=== PATIENT | male | born 1955 | race Caucasian/White ===

== ENCOUNTER 2020-03-14 08:57 | Outpatient (REF) | payer BC, SELFPAY ==
--- NOTE | 2020-03-14 08:57 | FL_ITS ---
EXAMINATION: FL BARIUM SWALLOW CLINICAL INFORMATION: Dysphagia COMPARISON: 11/20/2018 TECHNIQUE: Barium swallow examination is performed using fluoroscopic evaluation in addition to multiple fluoroscopic spot views. The patient is imaged both upright and prone and using both thick and thin sulfate along with effervescent granules. A 13 mm barium tablet was also utilized. Fluoroscopy time: 2 minutes DAP: 12.285 Gycm2 Images: 86 FINDINGS: There is normal oral bolus control and transfer. Normal posterior tilt of the epiglottis with elevation of the hyoid. No cricopharyngeal abnormality. There is focal filling defect in the anterior upper esophagus at the level of C6-C7. This is well seen on series 2 image 7 and on series 6 image 16. The 13 mm barium tablet promptly passed beyond this level. The esophagus was normal in course, caliber, and contour. There was normal distensibility with no additional fixed segment of narrowing. No additional focal mucosal abnormality was identified. Mild to moderate esophageal dysmotility was observed. Significant stasis of contrast in the esophagus in the prone position. Contrast passed freely across the gastroesophageal junction into the stomach. No significant hiatal hernia. No gastroesophageal reflux was observed. FL/FL barium swallow IMPRESSION: Linear filling defect in the anterior upper esophagus. This is not definitively seen on the previous esophagram from 11/20/2018. This could represent an esophageal web. This did not cause delayed passage of the barium tablet. Mild to moderate esophageal dysmotility.
== END 2020-03-14 08:58 | disposition home or self-care (01) ==
LOC: HO.XRAY 08:57
PROVIDERS: PCP Internal Medicine; Visit Provider Internal Medicine
DX: R47.02 Dysphasia (principal)
CPT/HCPCS: 74220

== ENCOUNTER 2020-03-21 11:11 | Day surgery (SDC) | payer BC, SELFPAY ==
[2020-03-15 13:51] VITALS: BMI 28.1
--- NOTE | 2020-03-17 15:39 | P.CONAN_ITS ---
Documented by User: Teresa Jim 03/18/20 13:47 HPI - Anesthesia Eval Consult details Narrative: 64yo M for Flex Sig and Upper Endoscopy with balloon dilation h/o laryngeal CA s/p radiation and chemo, tx completed on or before 01/2020 [facility] Past Medical History Medical History Back pain CAD (coronary artery disease) Cancer Diabetes DVT (deep venous thrombosis) Elevated cholesterol HTN (hypertension) Hx of ulcerative colitis Hx pulmonary embolism Lab test negative for COVID-19 virus Myocardial infarction Family History Family History (Updated 03/18/20 @ 11:59 by Alessia Reyes [facility]) Father Medical history unknown Mother Medical history unknown Surgical History Surgical History H/O colonoscopy History of incision and drainage History of PTCA Social History Social History Smoking Status: Former smoker Smoked in Last 30 Days: No Smoking Quit Date: 1994 Use of substances other than those prescribed or required for medical reasons: No Have you been hit, kicked, punched, or otherwise hurt by someone within the past year? If so, by whom?: No Advance Directives Information Provided: No Recently lost weight without trying: No Meds Allergies Allergy/AdvReac Type Severity Reaction Status Date / Time No Known Allergies Allergy Verified 03/21/20 11:34 Home Medications Medication Instructions Recorded Confirmed Type atorvastatin [Lipitor] 80 mg PO BEDTIME 03/15/20 03/15/20 History carvedilol [Coreg] 3.125 mg PO BID 03/15/20 03/15/20 History cholecalciferol (vitamin D3) 50 mcg PO DAILY 03/15/20 03/15/20 History [Vitamin D3] fenofibrate nanocrystallized 48 mg PO DAILY 03/15/20 03/15/20 History [Tricor] folic acid 1 mg PO DAILY 03/15/20 03/15/20 History gabapentin 400 mg PO TID 03/15/20 03/15/20 History lisinopril 10 mg PO DAILY 03/15/20 03/15/20 History mesalamine [Pentasa] 2,000 mg PO BID 03/15/20 03/15/20 History omeprazole 40 mg PO DAILY 03/15/20 03/15/20 History pioglitazone-metformin [Actoplus 1 tab PO BID 03/15/20 03/15/20 History MET] rivaroxaban [Xarelto] 20 mg PO DAILY 03/15/20 03/15/20 History Exam Exam Date and Time: March 17, 2020 1539 Height,Weight and Vital Signs: Height 5 ft 10 in Weight 88.904 kg Assessment and Plan Assessment Anesthesia Assessment: Chart Reviewed Documented by User: Joselin Kerr 03/21/20 12:11 [facility] Past Medical History Medical History Back pain CAD (coronary artery disease) Cancer Diabetes DVT (deep venous thrombosis) Elevated cholesterol HTN (hypertension) Hx of ulcerative colitis Hx pulmonary embolism Lab test negative for COVID-19 virus Myocardial infarction Family History Family History (Updated 03/18/20 @ 11:59 by MANISH Proctor) Father Medical history unknown Mother Medical history unknown Surgical History Surgical History H/O colonoscopy History of incision and drainage History of PTCA Social History Social History Smoking Status: Former smoker Smoked in Last 30 Days: No Smoking Quit Date: 1994 Use of substances other than those prescribed or required for medical reasons: No Have you been hit, kicked, punched, or otherwise hurt by someone within the past year? If so, by whom?: No Advance Directives Information Provided: No Recently lost weight without trying: No Meds Allergies Allergy/AdvReac Type Severity Reaction Status Date / Time No Known Allergies Allergy Verified 03/21/20 11:34 Home Medications Medication Instructions Recorded Confirmed Type atorvastatin [Lipitor] 80 mg PO BEDTIME 03/15/20 03/15/20 History carvedilol [Coreg] 3.125 mg PO BID 03/15/20 03/15/20 History cholecalciferol (vitamin D3) 50 mcg PO DAILY 03/15/20 03/15/20 History [Vitamin D3] fenofibrate nanocrystallized 48 mg PO DAILY 03/15/20 03/15/20 History [Tricor] folic acid 1 mg PO DAILY 03/15/20 03/15/20 History gabapentin 400 mg PO TID 03/15/20 03/15/20 History lisinopril 10 mg PO DAILY 03/15/20 03/15/20 History mesalamine [Pentasa] 2,000 mg PO BID 03/15/20 03/15/20 History omeprazole 40 mg PO DAILY 03/15/20 03/15/20 History pioglitazone-metformin [Actoplus 1 tab PO BID 03/15/20 03/15/20 History MET] rivaroxaban [Xarelto] 20 mg PO DAILY 03/15/20 03/15/20 History Exam Airway Mallampati Class: II (Caps laterally, radiation and chemo) TM Dist: >3cm Neck ROM: Full Heart: RRR Lungs: CTA BL Assessment and Plan Assessment Anesthesia Assessment: Anesthesia Plan Discussed and Chart Reviewed Final Anesthetic Review NPO: Yes ASA Class: III Final Preanesthetic Review: Meds/Allgs Chart Reviewed and Consent Obtained/Reviewed Patient Risk: Intermediate Procedure Risk: Intermediate Anesthetic Plan Anesthetic Plan: MAC: Disposition: Standard PACU
[2020-03-21 11:46] VITALS: BP 152/56; PULSE 54; RESP 16; TEMP 36.2; O2SAT 99
[2020-03-21] MEDS: Lactated Ringers 1,000 ML 100 ML IVCONT (12:03)
[2020-03-21 12:05] LABS: Glucose, Whole Blood 72 mg/dL (60-115)
[2020-03-21 12:14] VITALS: BP 152/56; PULSE 57; RESP 18; TEMP 36.2; O2SAT 99
[2020-03-21 13:34] VITALS: BP 106/49; PULSE 57; RESP 16; TEMP 36.6; O2SAT 100
--- NOTE | 2020-03-21 13:44 | PM.OP ---
Brief Operative Note Date of Service: 03/21/20 Pre-op diagnosis: Dysphagia and abnormal PET-CT of rectum Post-op diagnosis: other (Minimal hiatal hernia, otherwise normal upper endoscopy. Normal flex sig to 20cm) Procedure: EGD. Flexible sigmoidoscopy to 20cm Surgeon: Good Reynaga Anesthesia: MAC Estimated blood loss (mL): 0 Pathology: none sent Condition: stable Disposition: PACU
[2020-03-21 13:47] VITALS: BP 131/62; PULSE 62; RESP 18; TEMP 36.6; O2SAT 97
[2020-03-21 14:05] VITALS: BP 145/64; PULSE 59; RESP 18; O2SAT 97
--- NOTE | 2020-03-21 14:05 | OP_ITS ---
SURGEON: Good Reynaga MD INDICATIONS: The patient presents for evaluation of dysphagia and abnormal PET-CT scan of rectum. Full consent has been obtained from him for both procedures, including risks of bleeding and perforation. PREOPERATIVE DIAGNOSIS: POSTOPERATIVE DIAGNOSIS: PROCEDURE PERFORMED: Esophagogastroduodenoscopy, and flexible sigmoidoscopy to 20 cm. ESTIMATED BLOOD LOSS: COMPLICATIONS: ANESTHESIA: Monitored anesthesia care. ASSISTANTS: SPECIMENS: PREOPERATIVE DIAGNOSES: Dysphagia and abnormal PET-CT of rectum. POSTOPERATIVE DIAGNOSES: Dysphagia and abnormal PET-CT of rectum, small hiatal hernia and normal upper endoscopy otherwise, normal sigmoidoscopy to 20 cm other than small internal hemorrhoids. DESCRIPTION OF PROCEDURE: The patient was placed in the left lateral decubitus position. The Olympus video gastroscope was passed in the posterior oropharynx and upper esophagus under direct vision. The upper esophagus appeared normal without any sign of proximal esophageal ring, stricture, nor web. Of note, there was easy passage of the upper esophageal sphincter into the esophagus. The scope was advanced to the gastroesophageal junction at 35 cm, which appeared normal. There was no sign of any esophagitis nor Gonzalez's esophagus. There was a small to minimal hiatal hernia. The scope was advanced to the pylorus and the duodenum was cannulated to the descending portion. The duodenum including the bulb appeared normal without mass or ulceration. The scope was withdrawn back into the stomach. The gastric antrum and body appeared normal with good peristalsis. The scope was retroflexed visualizing the proximal stomach carefully, which appeared normal, without any sign of mass or ulceration. The scope was straightened. The scope was withdrawn back into the esophagus. The entire esophagus was carefully insufflated and inspected. There was no sign of any mucosal abnormalities, esophageal strictures, esophageal ring, nor web. Again, the upper esophageal sphincter opened easily and allowed easy passage of the scope. The scope was withdrawn from the patient. He was turned around for the sigmoidoscopy. The digital rectal exam revealed no abnormalities. The Olympus video pediatric colonoscope was entered into the rectum, advanced to between 20 and 30 cm. Proximal to this there was some solid stool. The scope was then slowly withdrawn assessing all mucosal surfaces carefully. Preparation was excellent. I did not visualize any sign of polyps, colitis, nor angiodysplasia. The rectum was carefully inspected in both the forward viewing and retroflexed positions and appeared normal as well. Small internal hemorrhoids were noted. The scope was withdrawn from the patient. He tolerated the procedures well and was returned to the recovery area in stable condition. IMPRESSION: 1. Small to minimal hiatal hernia, otherwise normal upper endoscopy. No sign of any proximal esophageal pathology. 2. Normal sigmoidoscopy to 20 cm other than some internal hemorrhoids. No sign of any rectal mass nor inflammation. PLAN: The patient will continue his current regimen of Pentasa for his underlying inflammatory bowel disease. He will continue to follow up with Dr. 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 I suspect his dysphagia may very well be related to the recent radiation and chemotherapy and will hopefully improve as time goes on. Given no structural abnormalities seen in the esophagus, I feel his dysphagia may be due to a motility issue as a result of his recent radiation and chemotherapy. He was advised to resume his Xarelto today. This has all been discussed with his . MD KENIA Clay/JOE / [id number] MTDD
== END 2020-03-21 14:39 | disposition home or self-care (01) ==
PROVIDERS: PCP Internal Medicine; Visit Provider Internal Medicine
PROC: 0DJD8ZZ Inspection of Lower Intestinal Tract, Via Natural or Artificial Opening Endoscopic (ICD-10-PCS; CPT 45330; principal; 2020-03-21 12:30)
PROC: (CPT 43235; 2020-03-21 12:30)
DX: R13.10 Dysphagia, unspecified (principal); R93.3 Abnormal findings on diagnostic imaging of other parts of digestive tract; K64.8 Other hemorrhoids; K44.9 Diaphragmatic hernia without obstruction or gangrene; K51.00 Ulcerative (chronic) pancolitis without complications; E11.9 Type 2 diabetes mellitus without complications; I10 Essential (primary) hypertension; Z79.899 Other long term (current) drug therapy; Z85.21 Personal history of malignant neoplasm of larynx; Z92.21 Personal history of antineoplastic chemotherapy; Z92.3 Personal history of irradiation
CPT/HCPCS: 43235; 45330; 82947

== ENCOUNTER 2020-03-25 06:15 | Outpatient (REF) | payer BC, SELFPAY ==
[2020-03-25 08:03] LABS: Eosinophils Absolute Auto 0.4 X10*3/uL (0.0-0.4); Eosinophils Percent Auto 8.3 % (0-4); Hematocrit 34.2 % (42-52); Hemoglobin 11.2 g/dl (14.0-18.0); Imm Gran Abs Auto 0.02 X10*3/uL (0.00-0.03); Imm Gran Pct Auto 0.5 % (0.0-0.4); Lymphocytes Absolute Auto 0.7 X10*3/uL (1.2-4.9); Lymphocytes Percent Auto 16.2 % (20-40); MANUAL DIFF FLAG SCAN; Mean Corpuscular HGB Conc 32.7 g/dl (31.0-36.0); Mean Corpuscular Volume 91.7 fL (80-98); Mean Platelet Volume 9.9 fL (9.4-12.4); Monocytes Absolute Auto 0.5 X10*3/uL (0.1-1.2); Monocytes Percent Auto 12.1 % (2-11); Neutrophils Absolute Auto 2.6 X10*3/uL (2.0-8.3); Neutrophils Percent Auto 61.9 % (45-73); Platelet Count 250 X10*3/uL (160-400); Red Blood Count 3.73 X10*6/uL (4.60-5.80); Red Cell Distribution Width 14.6 % (11.0-16.0); SCAN SMEAR FLAG 1; White Blood Count 4.2 X10*3/uL (4.8-10.8)
[2020-03-25 08:23] LABS: Estimated Average Glucose 146 mg/dL; Hemoglobin A1c % 6.7 %
[2020-03-25 08:26] LABS: Glucose Urine UA NEG (NEG); Leukocyte Esterase Urine NEG (NEG); Nitrite Urine NEG (NEG); Urine Blood NEG (NEG); Urine Ketones NEG (NEG); Urine Protein NEG (NEG-TRACE)
[2020-03-25 08:27] LABS: Appearance Urine CLEAR; Color Urine STRAW
[2020-03-25 08:29] LABS: Alanine Aminotransferase 11 U/L (0-40); Albumin Level 4.2 g/dL (3.5-5.0); Alkaline Phosphatase 53 U/L (39-117); Anion Gap 11 (12-20); Aspartate Amino Transferase 13 U/L (5-37); Bilirubin Total 0.6 mg/dL (0.0-1.0); Blood Urea Nitrogen 19 mg/dL (9-16); Calcium 9.1 mg/dL (8.4-10.2); Carbon Dioxide 31 mmol/L (22-29); Chloride 104 mmol/L (96-108); Cholesterol 151 mg/dL; Estimated Glomerular Filt Rate > 60; Glucose Fasting 101 mg/dL (60-99); HDL Cholesterol 62 mg/dL; LDL Cholesterol Calculated 81 mg/dl; Potassium 3.9 mmol/l (3.3-5.1); Sodium 142 mmol/L (135-145); Total Protein 6.5 g/dL (6.5-8.0); Triglycerides 42 mg/dL
[2020-03-25 08:43] LABS: SLIDE REVIEW VERIFIED
[2020-03-25 08:47] LABS: RBC Urine 0-2 /HPF (0); WBC Urine 0-2 /HPF (0-4)
[2020-03-25 08:53] LABS: TSH reflex Free T4 5.98 mIU/mL (0.32-4.0); Vitamin D 25-OH Total 31.6 ng/mL (>30)
[2020-03-25 08:57] LABS: Creatinine Urine 80.16 mg/dL; Microalbumin Urine < 5.0 mg/L
[2020-03-25 09:28] LABS: Free T4 (Free Thyroxine) 0.76 ng/dL (0.71-1.85)
== END 2020-03-25 06:16 | disposition home or self-care (01) ==
LOC: HO.LAB 06:15
PROVIDERS: Visit Provider Internal Medicine
DX: E11.9 Type 2 diabetes mellitus without complications (principal); E78.5 Hyperlipidemia, unspecified; I10 Essential (primary) hypertension; K22.4 Dyskinesia of esophagus; K51.90 Ulcerative colitis, unspecified, without complications; E55.9 Vitamin D deficiency, unspecified; E66.9 Obesity, unspecified
CPT/HCPCS: 36415; 80053; 80061; 81001; 82043; 82306; 83036; 84439; 84443; 85025

== ENCOUNTER 2020-07-08 05:56 | Outpatient (REF) | payer BC, SELFPAY ==
[2020-07-08 07:17] LABS: Basophils Absolute Auto 0.1 X10*3/uL (0.0-0.2); Basophils Percent Auto 1.5 % (0-2); Eosinophils Absolute Auto 0.4 X10*3/uL (0.0-0.4); Eosinophils Percent Auto 10.5 % (0-4); Hematocrit 35.7 % (42-52); Hemoglobin 11.4 g/dl (14.0-18.0); Imm Gran Abs Auto 0.02 X10*3/uL (0.00-0.03); Imm Gran Pct Auto 0.5 % (0.0-0.4); Lymphocytes Absolute Auto 0.6 X10*3/uL (1.2-4.9); Lymphocytes Percent Auto 14.7 % (20-40); MANUAL DIFF FLAG SCAN; Mean Corpuscular HGB Conc 31.9 g/dl (31.0-36.0); Mean Corpuscular Hemoglobin 29.5 pg (27.0-33.0); Mean Corpuscular Volume 92.5 fL (80-98); Mean Platelet Volume 9.9 fL (9.4-12.4); Monocytes Absolute Auto 0.4 X10*3/uL (0.1-1.2); Monocytes Percent Auto 10.3 % (2-11); Neutrophils Absolute Auto 2.6 X10*3/uL (2.0-8.3); Neutrophils Percent Auto 62.5 % (45-73); Platelet Count 248 X10*3/uL (160-400); Red Blood Count 3.86 X10*6/uL (4.60-5.80); Red Cell Distribution Width 15.3 % (11.0-16.0); SCAN SMEAR FLAG 1; White Blood Count 4.1 X10*3/uL (4.8-10.8)
[2020-07-08 07:23] LABS: Glucose Urine UA NEG (NEG); Leukocyte Esterase Urine NEG (NEG); Nitrite Urine NEG (NEG); Specific Gravity - Urine 1.025 (1.005-1.025); Urine Blood NEG (NEG); Urine Ketones NEG (NEG); Urine Protein NEG (NEG-TRACE)
[2020-07-08 07:27] LABS: Appearance Urine CLEAR; Color Urine YELLOW
[2020-07-08 07:43] LABS: Creatinine Urine 107.04 mg/dL; Microalbum/Creatinine Ratio Ur 4.6 ug/mg cr
[2020-07-08 07:49] LABS: Alanine Aminotransferase 9 U/L (0-40); Albumin Level 4.2 g/dL (3.5-5.0); Alkaline Phosphatase 57 U/L (39-117); Anion Gap 12 (12-20); Aspartate Amino Transferase 14 U/L (5-37); Bilirubin Total 0.5 mg/dL (0.0-1.0); Blood Urea Nitrogen 17 mg/dL (9-16); Calcium 9.1 mg/dL (8.4-10.2); Carbon Dioxide 30 mmol/L (22-29); Chloride 107 mmol/L (96-108); Cholesterol 149 mg/dL; Estimated Glomerular Filt Rate > 60; Glucose Fasting 117 mg/dL (60-99); HDL Cholesterol 60 mg/dL; LDL Cholesterol Calculated 79 mg/dl; Potassium 4.2 mmol/L (3.3-5.1); Sodium 145 mmol/L (135-145); Total Protein 6.6 g/dL (6.5-8.0); Triglycerides 51 mg/dL
[2020-07-08 08:10] LABS: TSH reflex Free T4 7.92 uIU/mL (0.32-4.0)
[2020-07-08 08:50] LABS: Free T4 (Free Thyroxine) 0.81 ng/dL (0.71-1.85)
[2020-07-08 09:03] LABS: SLIDE REVIEW VERIFIED
== END 2020-07-08 05:57 | disposition home or self-care (01) ==
LOC: HO.LAB 05:56
PROVIDERS: PCP Internal Medicine; Visit Provider Internal Medicine
DX: C32.9 Malignant neoplasm of larynx, unspecified (principal); I10 Essential (primary) hypertension; K51.90 Ulcerative colitis, unspecified, without complications; E78.00 Pure hypercholesterolemia, unspecified; E11.9 Type 2 diabetes mellitus without complications; E66.3 Overweight; E55.9 Vitamin D deficiency, unspecified
CPT/HCPCS: 36415; 80053; 80061; 81003; 82043; 82306; 84439; 84443; 85025

== ENCOUNTER 2020-12-08 06:06 | Outpatient (REF) | payer BC, SELFPAY ==
[2020-12-08 06:58] LABS: MANUAL DIFF FLAG NO
[2020-12-08 07:00] LABS: Basophils Absolute Auto 0.1 X10*3/uL (0.0-0.2); Eosinophils Absolute Auto 0.4 X10*3/uL (0.0-0.4); Eosinophils Percent Auto 6.9 % (0-4); Hematocrit 34.3 % (42-52); Imm Gran Abs Auto 0.01 X10*3/uL (0.00-0.03); Imm Gran Pct Auto 0.2 % (0.0-0.4); Lymphocytes Absolute Auto 0.8 X10*3/uL (1.2-4.9); Lymphocytes Percent Auto 12.9 % (20-40); Mean Corpuscular HGB Conc 32.1 g/dl (31.0-36.0); Mean Corpuscular Hemoglobin 28.1 pg (27.0-33.0); Mean Corpuscular Volume 87.7 fL (80-98); Mean Platelet Volume 9.4 fL (9.4-12.4); Monocytes Absolute Auto 0.6 X10*3/uL (0.1-1.2); Platelet Count 299 X10*3/uL (160-400); Red Blood Count 3.91 X10*6/uL (4.60-5.80); Red Cell Distribution Width 16.1 % (11.0-16.0); White Blood Count 5.8 X10*3/uL (4.8-10.8)
[2020-12-08 07:20] LABS: Alanine Aminotransferase 9 U/L (0-40); Albumin Level 4.3 g/dL (3.5-5.0); Alkaline Phosphatase 56 U/L (39-117); Anion Gap 12 (12-20); Aspartate Amino Transferase 12 U/L (5-37); Bilirubin Total 0.4 mg/dL (0.0-1.0); Blood Urea Nitrogen 13 mg/dL (9-16); Calcium 9.4 mg/dL (8.4-10.2); Carbon Dioxide 30 mmol/L (22-29); Chloride 106 mmol/L (96-108); Cholesterol 155 mg/dL; Estimated Glomerular Filt Rate > 60; Glucose Fasting 108 mg/dL (60-99); HDL Cholesterol 49 mg/dL; LDL Cholesterol Calculated 89 mg/dl; Sodium 144 mmol/L (135-145); Total Protein 6.7 g/dL (6.5-8.0); Triglycerides 88 mg/dL
[2020-12-08 07:27] LABS: Estimated Average Glucose 140 mg/dL; Hemoglobin A1c % 6.5 %
[2020-12-08 07:42] LABS: TSH reflex Free T4 8.25 uIU/mL (0.32-4.0); Vitamin D 25-OH Total 36.3 ng/mL (>30)
[2020-12-08 08:17] LABS: Free T4 (Free Thyroxine) 0.84 ng/dL (0.71-1.85)
[2020-12-08 09:06] LABS: Glucose Urine UA NEG (NEG); Leukocyte Esterase Urine NEG (NEG); Nitrite Urine NEG (NEG); PH 6.5 (5.0-8.0); Specific Gravity - Urine 1.015 (1.005-1.025); Urine Blood NEG (NEG); Urine Ketones NEG (NEG); Urine Protein NEG (NEG-TRACE)
[2020-12-08 09:09] LABS: Appearance Urine CLEAR; Color Urine YELLOW
[2020-12-08 09:24] LABS: Creatinine Urine 89.74 mg/dL; Microalbumin Urine < 5.0 mg/L
== END 2020-12-08 06:07 | disposition home or self-care (01) ==
LOC: HO.LAB 06:06
PROVIDERS: PCP Internal Medicine; Visit Provider Internal Medicine
DX: I10 Essential (primary) hypertension (principal); K51.90 Ulcerative colitis, unspecified, without complications; E78.00 Pure hypercholesterolemia, unspecified; E11.9 Type 2 diabetes mellitus without complications; E66.3 Overweight; E55.9 Vitamin D deficiency, unspecified; Z86.711 Personal history of pulmonary embolism
CPT/HCPCS: 36415; 80053; 80061; 81003; 82043; 82306; 83036; 84439; 84443; 85025

== ENCOUNTER 2021-01-16 15:59 | Outpatient (REF) | payer BC, SELFPAY ==
[2021-01-16 17:05] LABS: MANUAL DIFF FLAG NO
[2021-01-16 17:29] LABS: Basophils Percent Auto 0.4 % (0-2); Eosinophils Absolute Auto 0.4 X10*3/uL (0.0-0.4); Eosinophils Percent Auto 4.2 % (0-4); Hematocrit 30.8 % (42-52); Hemoglobin 9.9 g/dl (14.0-18.0); Imm Gran Abs Auto 0.04 X10*3/uL (0.00-0.03); Imm Gran Pct Auto 0.5 % (0.0-0.4); Lymphocytes Absolute Auto 0.7 X10*3/uL (1.2-4.9); Lymphocytes Percent Auto 8.3 % (20-40); Mean Corpuscular HGB Conc 32.1 g/dl (31.0-36.0); Mean Corpuscular Hemoglobin 28.1 pg (27.0-33.0); Mean Corpuscular Volume 87.5 fL (80-98); Mean Platelet Volume 9.5 fL (9.4-12.4); Monocytes Absolute Auto 0.9 X10*3/uL (0.1-1.2); Monocytes Percent Auto 11.1 % (2-11); Neutrophils Absolute Auto 6.3 X10*3/uL (2.0-8.3); Neutrophils Percent Auto 75.5 % (45-73); Platelet Count 294 X10*3/uL (160-400); Red Blood Count 3.52 X10*6/uL (4.60-5.80); Red Cell Distribution Width 16.8 % (11.0-16.0); White Blood Count 8.4 X10*3/uL (4.8-10.8)
[2021-01-16 17:33] LABS: Alanine Aminotransferase 10 U/L (0-40); Albumin Level 3.9 g/dL (3.5-5.0); Alkaline Phosphatase 55 U/L (39-117); Anion Gap 13 (12-20); Aspartate Amino Transferase 10 U/L (5-37); Bilirubin Total 0.3 mg/dL (0.0-1.0); Blood Urea Nitrogen 15 mg/dL (9-16); Calcium 9.4 mg/dL (8.4-10.2); Carbon Dioxide 28 mmol/L (22-29); Chloride 102 mmol/L (96-108); Estimated Glomerular Filt Rate > 60; Glucose Random 166 mg/dL (60-115); Potassium 3.7 mmol/L (3.3-5.1); Sodium 139 mmol/L (135-145); Total Protein 6.2 g/dL (6.5-8.0)
== END 2021-01-16 16:00 | disposition home or self-care (01) ==
LOC: HO.LAB 15:59
PROVIDERS: Nurse Practitioner Family; PCP Internal Medicine; Visit Provider Internal Medicine
DX: R55 Syncope and collapse (principal)
CPT/HCPCS: 36415; 80053; 85025

== ENCOUNTER 2021-01-18 12:57 | Outpatient (REF) | payer BC, SELFPAY ==
--- NOTE | ~2021-01-18 | US_ITS ---
EXAMINATION: US EXTRACRANIAL CAROTID DUPLEX, BILATERAL CLINICAL INFORMATION: 7 absent collapse. Left carotid bruit. COMPARISON: None TECHNIQUE: Real-time ultrasound and Doppler techniques (integrating B-mode 2-D vascular images, Doppler spectral analysis and color-flow Doppler imaging) were utilized to interrogate the extracranial carotid arteries, the vertebral arteries and proximal subclavian arteries bilaterally. The degree of stenosis is determined by criteria similar to NASCET. FINDINGS: The exam is technically challenging due to body habitus. Right Side: 1. There is hard atherosclerotic plaque seen in the bifurcation/proximal ICA region. 2. The common carotid artery PSV proximally is 115 cm/s and distally 132 cm/s. 3. The proximal internal carotid artery velocities are 76 cm/s systolic and 15 cm/s diastolic. 4. The proximal external carotid artery PSV is 137 cm/s. 5. The vertebral artery shows antegrade flow. 6. The subclavian artery waveforms are normal. Left Side: 1. There is hard atherosclerotic plaque seen in the bifurcation/proximal ICA region. 2. The common carotid artery PSV proximally is 52 cm/s and distally 64 cm/s. 3. The proximal internal carotid artery velocities are 388 cm/s systolic and 71 cm/s diastolic. 4. The proximal external carotid artery PSV is 513 cm/s. 5. The vertebral artery shows antegrade flow. 6. The subclavian artery waveforms are normal. US/US carotid duplex BI IMPRESSION: 1. RIGHT: No hemodynamically significant stenosis in right ICA. 2. LEFT: Moderate stenosis in the range of 50-79% left ICA. High-grade stenosis left external carotid artery. 3. Normal antegrade flow seen in both vertebral arteries.
== END 2021-01-18 12:58 | disposition home or self-care (01) ==
LOC: HO.HMGCX 12:57
PROVIDERS: PCP Internal Medicine; Visit Provider Nurse Practitioner Family
DX: R55 Syncope and collapse (principal)
CPT/HCPCS: 93880

== ENCOUNTER 2021-03-30 06:05 | Outpatient (REF) | payer BC, SELFPAY ==
[2021-03-30 06:12] LABS: MANUAL DIFF FLAG NO
[2021-03-30 07:25] LABS: Basophils Absolute Auto 0.1 X10*3/uL (0.0-0.2); Basophils Percent Auto 0.9 % (0-2); Eosinophils Absolute Auto 0.6 X10*3/uL (0.0-0.4); Eosinophils Percent Auto 7.9 % (0-4); Hematocrit 31.1 % (42.0-52.0); Hemoglobin 9.8 g/dl (14.0-18.0); Imm Gran Abs Auto 0.07 X10*3/uL (0.00-0.03); Imm Gran Pct Auto 0.9 % (0.0-0.4); Lymphocytes Absolute Auto 0.5 X10*3/uL (1.2-4.9); Mean Corpuscular HGB Conc 31.5 g/dl (31.0-36.0); Mean Corpuscular Hemoglobin 26.4 pg (27.0-33.0); Mean Corpuscular Volume 83.8 fL (80.0-98.0); Mean Platelet Volume 9.1 fL (9.4-12.4); Monocytes Absolute Auto 0.9 X10*3/uL (0.1-1.2); Monocytes Percent Auto 11.7 % (2-11); Neutrophils Absolute Auto 5.3 x10*3/uL (2.0-8.3); Neutrophils Percent Auto 71.6 % (45-73); Platelet Count 481 X10*3/uL (160-400); Red Blood Count 3.71 X10*6/uL (4.60-5.80); Red Cell Distribution Width 16.1 % (11.0-16.0); White Blood Count 7.4 X10*3/uL (4.8-10.8)
[2021-03-30 08:00] LABS: Alanine Aminotransferase 9 U/L (0-40); Alkaline Phosphatase 63 U/L (39-117); Anion Gap 14 (12-20); Aspartate Amino Transferase 10 U/L (5-37); Bilirubin Total 0.4 mg/dL (0.0-1.0); Blood Urea Nitrogen 9 mg/dL (9-16); Carbon Dioxide 30 mmol/L (22-29); Chloride 102 mmol/L (96-108); Cholesterol 133 mg/dL; Estimated Glomerular Filt Rate > 60; Glucose Fasting 99 mg/dL (60-99); HDL Cholesterol 43 mg/dL; LDL Cholesterol Calculated 68 mg/dl; Sodium 142 mmol/L (135-145); Total Protein 6.9 g/dL (6.5-8.0); Triglycerides 114 mg/dL
[2021-03-30 08:01] LABS: Estimated Average Glucose 137 mg/dL; Hemoglobin A1c % 6.4 %
[2021-03-30 08:11] LABS: Free T4 (Free Thyroxine) 0.86 ng/dL (0.71-1.85); Thyroid Stimulating Hormone 5.89 uIU/mL (0.32-4.0); Vitamin D 25-OH Total 40.7 ng/mL (>30)
[2021-03-30 08:33] LABS: Appearance Urine CLEAR; Color Urine YELLOW; Glucose Urine UA NEG (NEG); Leukocyte Esterase Urine NEG (NEG); Nitrite Urine NEG (NEG); Urine Blood NEG (NEG); Urine Ketones NEG (NEG); Urine Protein NEG (NEG-TRACE)
[2021-03-30 09:19] LABS: Creatinine Urine 41.78 mg/dL; Microalbumin Urine < 5.0 mg/L
== END 2021-03-30 06:06 | disposition home or self-care (01) ==
LOC: HO.LAB 06:05
PROVIDERS: PCP Internal Medicine; Visit Provider Internal Medicine
DX: E03.9 Hypothyroidism, unspecified (principal); E78.00 Pure hypercholesterolemia, unspecified; E11.9 Type 2 diabetes mellitus without complications; E55.9 Vitamin D deficiency, unspecified; I10 Essential (primary) hypertension
CPT/HCPCS: 36415; 80053; 80061; 81003; 82043; 82306; 83036; 84439; 84443; 85025